=== PATIENT | male | born 1955 | race Native Hawaiian/Other Pacific Islander ===

== ENCOUNTER 2019-05-06 07:56 | Day surgery (SDC) | payer OTHER | END 2019-05-06 10:40 | disposition home or self-care (01) | LOC: OR 07:56 | PROC: 0DJD8ZZ Inspection of Lower Intestinal Tract, Via Natural or Artificial Opening Endoscopic (ICD-10-PCS; principal; 2019-05-06) | DX: Z12.11 Encounter for screening for malignant neoplasm of colon (principal); Z80.0 Family history of malignant neoplasm of digestive organs | CPT/HCPCS: J2001; J2250; J2405; J2704 ==

== ENCOUNTER 2020-08-24 14:52 | Outpatient (CLI) | payer OTHER | END 2020-08-24 20:49 | disposition home or self-care (01) | LOC: RAD 14:52 | PROVIDERS: ATTEND Nurse Practitioner Family | DX: M25.511 Pain in right shoulder (principal) ==

== ENCOUNTER 2021-05-11 17:18 | Emergency (ER) | payer OTHER ==
[~2021-05-11] VITALS: Ht 182.9 cm; Wt 88.5 kg
[2021-05-11 18:24] LABS: PLATELET COUNT 222 K/uL (142-355)
[2021-05-11 18:34] LABS: POTASSIUM 3.6 mmol/L (3.6-5.2)
[2021-05-11 18:44] LABS: PARTIAL THROMBOPLASTIN TIME 26.5 SECONDS (24.5-33.6)
[2021-05-11 19:50] VITALS: BP 119/64; TEMP 98
== END 2021-05-11 19:50 | disposition still patient (30) ==
LOC: ED 17:18
PROVIDERS: Hospitalist
DX: R07.89 Other chest pain (principal); Z20.822 Contact with and (suspected) exposure to COVID-19
CPT/HCPCS: 36415; 80053; 82550; 83880; 84484; 85027; 85610; 85730; 87635; 93005; 99284; U0003

== ENCOUNTER 2021-05-11 19:06 | Observation (INO) | payer OTHER ==
[~2021-05-11] VITALS: Ht 182.9 cm; Wt 91.2 kg
[2021-05-11 20:01] VITALS: BP 100/54; TEMP 98.6; Ht 182.9 cm; Wt 91.2 kg
[2021-05-12 00:11] VITALS: BP 83/44; TEMP 98.3
[2021-05-12 04:00] VITALS: BP 99/67; TEMP 97.6
[2021-05-12 08:00] VITALS: BP 100/65; TEMP 98.8
[2021-05-12 10:50] LABS: PARTIAL THROMBOPLASTIN TIME 32.6 SECONDS (24.5-33.6)
[2021-05-12 12:00] VITALS: BP 125/73; TEMP 97.9
== END 2021-05-12 12:55 ==
LOC: MED/SURG 19:06
PROVIDERS: ADMIT Hospitalist; ATTEND Internal Medicine Endocrinology, Diabetes & Metabolism
DX: I21.4 Non-ST elevation (NSTEMI) myocardial infarction (principal); E03.8 Other specified hypothyroidism; N40.0 Benign prostatic hyperplasia without lower urinary tract symptoms; R00.1 Bradycardia, unspecified
CPT/HCPCS: 36415; 82550; 82553; 84484; 85610; 85730; 93005; 94760; 96372; 99220; G0378; G0379; J1644; J1650; J2270